=== PATIENT | male | born 1945 | race African-American/Black ===

== ENCOUNTER 2021-04-01 08:02 | Outpatient (CLI) | payer MEDICARE ==
[2021-04-01] MEDS ORDERED: Iopamidol 370 76% 100 ML VIAL ONE (09:22)
== END 2021-04-01 08:03 | disposition home or self-care (01) ==
LOC: CT 08:02
PROVIDERS: ATTEND Radiology Radiation Oncology
DX: C07 Malignant neoplasm of parotid gland (principal); K76.9 Liver disease, unspecified; E01.0 Iodine-deficiency related diffuse (endemic) goiter
CPT/HCPCS: 71260; Q9967

== ENCOUNTER 2021-04-07 12:30 | Outpatient (CLI) | payer MEDICARE | END 2021-04-07 12:31 | disposition home or self-care (01) | LOC: PET 12:30 | PROVIDERS: ATTEND Internal Medicine Hematology & Oncology | DX: C07 Malignant neoplasm of parotid gland (principal) | CPT/HCPCS: 78815; A9552 ==

== ENCOUNTER 2021-08-22 09:25 | Outpatient (CLI) | payer MEDICARE | END 2021-08-22 09:26 | disposition home or self-care (01) | LOC: CT 09:25 | PROVIDERS: ATTEND Radiology Radiation Oncology | DX: C07 Malignant neoplasm of parotid gland (principal); R60.0 Localized edema; Z92.3 Personal history of irradiation; Z92.21 Personal history of antineoplastic chemotherapy | CPT/HCPCS: 70491; 71260; 82565 ==

== ENCOUNTER 2021-12-14 12:02 | Outpatient (CLI) | payer MEDICARE ==
[2021-12-14] MEDS ORDERED: Iopamidol 370 76% 100 ML VIAL ONE (12:07)
== END 2021-12-14 12:03 | disposition home or self-care (01) ==
LOC: CT 12:02
PROVIDERS: ATTEND Internal Medicine Hematology & Oncology
DX: C07 Malignant neoplasm of parotid gland (principal)
CPT/HCPCS: 70491; 71260; 82565; Q9967

== ENCOUNTER 2022-02-22 09:21 | Outpatient (CLI) | payer MEDICARE ==
[~2022-02-22 09:21] MED LIST: Iopamidol 370 76% 100 ML VIAL ONE
== END 2022-02-22 09:22 | disposition home or self-care (01) ==
LOC: BICCT 09:21
PROVIDERS: ATTEND Internal Medicine Hematology & Oncology
DX: C07 Malignant neoplasm of parotid gland (principal); K11.8 Other diseases of salivary glands
CPT/HCPCS: 70470; 70491; 82565; Q9967

== ENCOUNTER 2023-01-17 11:58 | Outpatient (CLI) | payer MEDICARE | END 2023-01-17 11:59 | disposition home or self-care (01) | LOC: CT 11:58 | PROVIDERS: ATTEND Internal Medicine Hematology & Oncology | DX: C07 Malignant neoplasm of parotid gland (principal) | CPT/HCPCS: 70491; 71260; 82565; Q9967 ==